=== PATIENT | male | born 1980 | race Caucasian/White ===

== ENCOUNTER 2018-01-17 09:12 | Observation (INO) | payer OTHER ==
[2018-01-17] MEDS ORDERED: NS 1,000 ML IV ONE (09:28)
--- NOTE | 2018-01-17 09:30 | EDPHY ---
H & P Stated Complaint: R lower quad pain x 1 day Time Seen by Provider: 01/17/18 09:20 HPI/ROS: CHIEF COMPLAINT: Abdominal pain HISTORY OF PRESENT ILLNESS: The patient presents the ED with a 1 day history of right lower quadrant pain. The patient denies associated fever, nausea or anorexia. The patient denies prior history of abdominal surgery. The patient did start physical therapy yesterday for a thoracic spine injury. He was lifting weights but is does not feel as if he particularly stressed his abdominal wall. The patient denies any associated hematuria or dysuria. The patient denies fever, cough or congestion. The patient denies additional acute complaints. REVIEW OF SYSTEMS: A comprehensive 10 point review of systems is otherwise negative aside from elements mentioned in the history of present illness. Source: Patient Exam Limitations: No limitations - Medical/Surgical History Hx Asthma: No Hx Chronic Respiratory Disease: No Hx Diabetes: No Hx Cardiac Disease: No Hx Renal Disease: No Hx Cirrhosis: No Hx Alcoholism: No Hx HIV/AIDS: No Hx Splenectomy or Spleen Trauma: No Other PMH: Kidney infarction 2011. thoracic disc impingment - Social History Smoking Status: Never smoked - Physical Exam Exam: General Appearance: Alert, no distress Eyes: Pupils equal and round no pallor or injection ENT, Mouth: Mucous membranes moist Respiratory: There are no retractions, lungs are clear to auscultation Cardiovascular: Regular rate and rhythm Gastrointestinal: Tenderness to palpation right lower quadrant with rebound, no peritoneal signs Neurological: 5/5 strength all 4 extremities Skin: Warm and dry, no rashes Musculoskeletal: Neck is supple nontender Extremities: symmetrical, full range of motion Constitutional: Initial Vital Signs Temperature (C) 36.4 C 01/17/18 09:16 Heart Rate 67 01/17/18 09:16 Respiratory Rate 16 01/17/18 09:16 Blood Pressure 106/84 H 01/17/18 09:16 O2 Sat (%) 97 01/17/18 09:16 O2 Delivery Mode Room Air Allergies/Adverse Reactions: No Known Allergies Allergy (Unverified 01/17/18 09:16) Home Medications: Medication Instructions Recorded NK [No Known Home Meds] 01/17/18 Medical Decision Making - Diagnostics Imaging Results: Imaging Impressions Abdomen Ultrasound 01/17/18 09:28 Impression: Sonographic findings are suspicious for acute appendicitis. Findings conveyed to Dr. Bowden on 01/17/2018 at 10:40 AM. ED Course/Re-evaluation: The patient presents to the ED for evaluation of acute right lower quadrant pain. The patient denies significant past medical history. The patient was noted to have no significant leukocytosis. He was taken for an abdominal ultrasound which demonstrates acute appendicitis. I re-evaluated the patient at 10:45 a.m.. He received a dose of IV Unasyn. Consultation is made with the surgery service. The patient will be admitted for appendectomy. I consulted Dr. Smiley at 10:45 a.m. Differential Diagnosis: Differential diagnosis considered includes appendicitis, mesenteric adenitis, ureterolithiasis, gastroenteritis - Data Points Laboratory Results: Laboratory Results 01/17/18 09:35 01/17/18 09:35 01/17/18 01/17/18 01/17/18 10:15 09:35 09:35 WBC 8.85 10^3/uL 10^3/uL (3.80-9.50) RBC 4.90 10^6/uL 10^6/uL (4.40-6.38) Hgb 15.1 g/dL g/dL (13.7-17.5) Hct 44.8 % % (40.0-51.0) MCV 91.4 fL fL (81.5-99.8) MCH 30.8 pg pg (27.9-34.1) MCHC 33.7 g/dL g/dL (32.4-36.7) RDW 11.5 % % (11.5-15.2) Plt Count 246 10^3/uL 10^3/uL (150-400) MPV 10.1 fL fL (8.7-11.7) Neut % (Auto) 71.7 % % (39.3-74.2) Lymph % (Auto) 17.4 % % (15.0-45.0) Mason % (Auto) 8.1 % % (4.5-13.0) Eos % (Auto) 2.0 % % (0.6-7.6) Baso % (Auto) 0.7 % % (0.3-1.7) Nucleat RBC Rel Count 0.0 % % (0.0-0.2) Absolute Neuts (auto) 6.34 10^3/uL 10^3/uL (1.70-6.50) Absolute Lymphs (auto) 1.54 10^3/uL 10^3/uL (1.00-3.00) Absolute Monos (auto) 0.72 10^3/uL 10^3/uL (0.30-0.80) Absolute Eos (auto) 0.18 10^3/uL 10^3/uL (0.03-0.40) Absolute Basos (auto) 0.06 10^3/uL 10^3/uL (0.02-0.10) Absolute Nucleated RBC 0.00 10^3/uL 10^3/uL (0-0.01) Immature Gran % 0.1 % % (0.0-1.1) Immature Gran # 0.01 10^3/uL 10^3/uL (0.00-0.10) Sodium 141 mEq/L mEq/L (135-145) Potassium 4.2 mEq/L mEq/L (3.3-5.0) Chloride 105 mEq/L mEq/L (97-110) Carbon Dioxide 28 mEq/l mEq/l (22-31) Anion Gap 8 mEq/L mEq/L (8-16) BUN 11 mg/dL mg/dL (7-23) Creatinine 0.8 mg/dL mg/dL (0.7-1.3) Estimated GFR > 60 Glucose 89 mg/dL mg/dL (70-100) Calcium 9.5 mg/dL mg/dL (8.5-10.4) Urine Color YELLOW Urine Appearance CLEAR Urine pH 7.0 (5.0-7.5) Ur Specific [place] 1.008 (1.002-1.030) Urine Protein NEGATIVE (NEGATIVE) Urine Ketones NEGATIVE (NEGATIVE) Urine Blood NEGATIVE (NEGATIVE) Urine Nitrate NEGATIVE (NEGATIVE) Urine Bilirubin NEGATIVE (NEGATIVE) Urine Urobilinogen NEGATIVE EU EU (0.2-1.0) Ur Leukocyte Esterase NEGATIVE (NEGATIVE) Urine Glucose NEGATIVE (NEGATIVE) Medications Given: Discontinued Medications Sodium Chloride (Ns) 1,000 mls @ 0 mls/hr IV EDNOW ONE; Wide Open PRN Reason: Protocol Stop: 01/17/18 09:29 Last Admin: 01/17/18 09:35 Dose: 1,000 mls Departure - Departure Disposition: [facility] Acute Clinical Impression: Acute appendicitis Qualifiers: Acute appendicitis type: unspecified acute appendicitis type Qualified Code(s) : K35.80 - Unspecified acute appendicitis Condition: Good Referrals: NONE *PRIMARY CARE P,. [Primary Care Provider] - As per Instructions
[2018-01-17 09:48] LABS: PLATELET COUNT 246 10^3/uL (150-400)
[2018-01-17] MEDS ORDERED: AMPICILLIN/SULBACTAM 3 GM in NS 100 ML IV ONE (10:40)
[2018-01-17] MEDS ORDERED: NS 1,000 ML IV SCH (11:30)
[2018-01-17] MEDS ORDERED: ONDANSETRON 4 MG/2 ML VIAL IVP PRN ×2 (11:37→16:22)
[2018-01-17] MEDS ORDERED: HYDROmorphONE/DILAUDID 1 MG/ML INJ IVP PRN ×2 (11:37→16:22)
--- NOTE | 2018-01-17 12:08 | GHP ---
[f rep st] PREOP HISTORY AND PHYSICAL DATE OF ADMISSION: 01/17/2018 ADMITTING DIAGNOSIS: Acute appendicitis. HISTORY: The patient is a 37-year-old white male who had lunch yesterday of a salad and yogurt at noon. He stated he had minimal discomfort starting at 5-6 p.m., but that he really noticed it when he went to bed approximately 9 p.m. At that point, it had localized to the right lower quadrant. He had no nausea and vomiting. He did not sleep well due to the pain which was sharp, intermittent. He had 2 spoonfuls of cereal this morning and decided that it was not going to go down. He stopped. He is hungry at this point. He has not had a URI in the last 2 weeks. He has not had diarrhea in the last 2 weeks. He has not had any antibiotics in the last 6 months. He did travel to [place] in October. He did not have "[place]." There is no history of inflammatory bowel disease. No history of a prior similar symptomatology. He has not had any abdominal surgery. PAST MEDICAL HISTORY: He is a nonsmoker. He drinks 1-2 drinks a day. ALLERGIES: He has no known drug allergies. MEDICATIONS: He is not taking any medications. He was using ibuprofen until 4 days ago at a rate of 800 mg 3 times a day for his neck. PAST SURGICAL HISTORY: He has had wisdom tooth extraction, but no other surgery. There is no history of rheumatic fever, tuberculosis, hepatitis, or transfusions. REVIEW OF SYSTEMS: He had a kidney infarction on the right, which was a small wedge. Extensive vascular workup was negative. He has had a C6-7 disk bulge for 1 month. Initially had a steroid taper 3 weeks ago. He tried Motrin as mentioned above and currently is using physical therapy. He was found in his workup for his kidney infarction to have PVCs, but not abnormally frequently. No limits on his activities. PHYSICAL EXAMINATION: GENERAL: He is awake and alert. VITAL SIGNS: His blood pressure is 106/84, pulse of 67. Temperature 36.4, respirations 16. HEENT: Skull is normocephalic and atraumatic. GENERAL APPEARANCE: He is awake , alert, and oriented. NECK: Thyroid is unremarkable. There are no carotid bruits. There is no cervical, supraclavicular, axillary, or inguinal lymphadenopathy. BACK: Unremarkable. LUNGS: Clear to auscultation. CARDIAC : Shows S1, S2 to be normal, normal split of S2. ABDOMEN: Shows essentially no bowel sounds. Psoas and obturator signs are negative. He is tender with cough low in the right lower quadrant at a level of 5. To palpation, left upper quadrant is 1, left mid abdomen is 1, left lower quadrant is 1, epigastrium is 1, periumbilical area is 1, suprapubic area is 3, right upper quadrant is 1, right mid abdomen is 3. Right lower quadrant is 8. LABORATORY/IMAGING DATA: His white count is 8.8 with 72 neutrophils. His hematocrit is 45. His urinalysis is unremarkable. Specific gravity is 1.008, and his platelet count is 246. His ultrasound is consistent with an acute appendicitis. PLAN: He has received Unasyn for antibiotics. Plan to take him to the operating room after the current operating room. That will happen approximately 1:30 this afternoon. /[id number]/MODL MTDD
[2018-01-17] MEDS: LR 1,000 ML IV SCH ×2 (12:25→23:44)
[2018-01-17] MEDS: KETOROLAC 30 MG/1 ML SDV IVP SCH ×3 (12:26→23:43)
--- NOTE | 2018-01-17 13:02 | ASMTCMCOM ---
CM Note CM Note Notes: CM reviewed chart for D/C planning. Pt has been hospitalized due to acute appendicitis. He is scheduled to be taken to surgery at 1:00PM. Pt lived independently prior to hospitalization and it is anticipated that he will be D/C'ed independently. CM met with Pt due to him having questions about his insurance coverage. CM will request someone at the hospital familiar with this see Pt tomorrow morning orior to his possible D/C. CM to follow. D/C Plan: Anticipate independent. Date Signed: 01/17/2018 01:01 PM Electronically Signed By:Lynn Lobo
[2018-01-17] MEDS ORDERED: HEPARIN 5,000 UNIT/0.5 ML INJ ONE (13:56)
[2018-01-17] MEDS ORDERED: ceFAZolin 1 GM/5 ML SYR ONE (13:57)
[2018-01-17] MEDS ORDERED: MIDAZOLAM 2 MG/2 ML VIAL IVP ONE (14:28)
--- NOTE | 2018-01-17 14:28 | PDANEPAE ---
ANE History of Present Illness 37 yo for ang WICHO Past Medical History - Cardiovascular History Hx Hypertension: No Hx Arrhythmias: No Hx Chest Pain: No Hx Coronary Artery / Peripheral Vascular Disease: No Hx CHF / Valvular Disease: No Hx Palpitations: No - Pulmonary History Hx COPD: No Hx Asthma/Reactive Airway Disease: No Hx Recent Upper Respiratory Infection: No Hx Oxygen in Use at Home: No Hx Sleep Apnea: No Sleep Apnea Screening Result - Last Documented: Negative - Endocrine History Hx Diabetes: No - Chronic Pain History Chronic Pain: No ANE Review of Systems Review of Systems: - Exercise capacity METS (RN): 5 METS ANE Patient History - Allergies Allergies/Adverse Reactions: No Known Allergies Allergy (Verified 01/17/18 11:03) - Home Medications Home medications: home medication list seen and reviewed Home Medications: Ibuprofen [Motrin (*)] 200 mg PO DAILY PRN 01/17/18 [Last Taken 3 Days Ago ~02/24] - NPO status NPO Since - Liquids (Date): 01/17/18 NPO Since - Liquids (Time): 00:00 NPO Since - Solids (Date): 01/17/18 NPO Since - Solids (Time): 00:00 - Anes Hx Anes Hx: no prior problems - Smoking Hx Smoking Status: Never smoked ANE Labs/Vital Signs - Labs Result Diagrams: 01/17/18 09:35 01/17/18 09:35 - Vital Signs Blood Pressure: 150/91 Heart Rate: 62 Respiratory Rate: 16 O2 Sat (%): 97 Height: 6 ft 3 in Weight: 86.183 kg ANE Physical Exam - Airway Neck exam: FROM Mallampati Score: Class 2 Mouth exam: normal dental/mouth exam - Pulmonary Pulmonary: no respiratory distress - Cardiovascular Cardiovascular: regular rate and rhythym - ASA Status ASA Status: I ANE Anesthesia Plan Anesthesia Plan: general endotracheal anesthesia
[2018-01-17] MEDS ORDERED: DEXAMETHASONE 4 MG/ML VIAL ONE (14:37)
[2018-01-17] MEDS ORDERED: ROCURONIUM 50 MG/5 ML VIAL ONE ×2 (14:37→15:17)
[2018-01-17] MEDS ORDERED: ONDANSETRON 4 MG/2 ML VIAL ONE (14:37)
[2018-01-17] MEDS ORDERED: fentaNYL 100 MCG/2 ML INJ ONE ×4 (14:38→16:30)
[2018-01-17] MEDS ORDERED: PROPOFOL/EMULSION 500 MG/50 ML BOTTLE IV ONE (14:38)
[2018-01-17] MEDS ORDERED: PROPOFOL 200 MG/20 ML VIAL ONE (15:54)
--- NOTE | 2018-01-17 16:18 | POSTOPPROG ---
Post Op Note Date of Operation: 01/17/18 Surgeon: Surendra Smiley Anesthesia: GET(General Endotracheal) Pre-op Diagnosis: acute appendicitis Post-op Diagnosis: acute and chronic appendicitis with mesenteric adenitis Indication: acute appendicitis Procedure: Laparoscopic appendectomy Findings: acute and chronic appendicitis with mesenteric adenitis Inf/Abcess present in the surg proc area at time of surgery?: No EBL: Minimal Total fluids administered: 750cc Complications: oozing due to heavy NSAID use. Specimen(s): appendix
[2018-01-17] MEDS ORDERED: PROMETHAZINE HCL 25 MG/ML INJ IVP PRN (16:22)
[2018-01-17] MEDS ORDERED: NALOXONE HCL 0.4 MG/ML INJ IVP PRN (16:22)
--- NOTE | 2018-01-17 16:24 | POSTANESTH ---
Post Anesthetic Evaluation Cardiovascular Status: Normal, Stable Respiratory Status: Tx Decrease in SpO2 Level of Consciousness/Mental Status: Can Participate in Eval Pain Control: Adequate, Prn Tx Ordered Nausea/Vomiting Control: Adequate, Prn Tx Ordered
[2018-01-17] MEDS: fentaNYL 100 MCG/2 ML INJ IVP PRN ×2 (16:32→16:49)
--- NOTE | 2018-01-17 17:11 | GOP ---
[f rep st] OPERATIVE REPORT DATE OF OPERATION: 01/17/2018 SURGEON: Surendra Smiley MD ANESTHESIA: General endotracheal. PREOPERATIVE DIAGNOSIS: Acute appendicitis. POSTOPERATIVE DIAGNOSIS: Acute and chronic appendicitis with mesenteric adenitis. PROCEDURE PERFORMED: Laparoscopic appendectomy FINDINGS: Acute and chronic appendicitis and mesenteric adenitis. SPECIMENS: Appendix. ESTIMATED BLOOD LOSS: Minimal. INDICATIONS: Acute appendicitis. DESCRIPTION OF PROCEDURE: The patient was placed on the operating room table in supine position. He previously had emptied his bladder. He was placed under general endotracheal anesthesia. His abdomen was carefully clipped, prepped, and draped. A surgical time-out was carried out and agreed to by all members of the operative team. A curvilinear incision was made at the umbilicus. This was deepened to expose the anterior rectus sheath bilaterally. This was elevated between 2 Allis clamps and divided in the midline. Pursestring of #0 PDS was placed. Note there was some oozing at this point. The peritoneum was entered. The 11-12 mm disposable Chaparrita trocar was positioned. A 5 mm left lower quadrant oblique incision was made and a 5 mm transverse suprapubic incision was made. In each case, a 5 mm port was placed. There was no free fluid seen in the pelvis. The omentum was draped over the appendix. The appendix was carefully exposed and elevated. There were chronic adhesions between the tip of the appendix and the terminal ileum. The appendix was carefully elevated and the dense extensive adhesions were divided with the Harmonic scalpel. The mesoappendix was divided down to its base on the cecum with the Harmonic scalpel. The appendix was transected with a cuff of cecum using Endo-TRISTEN 35 mm stapler. Specimen was removed in an EndoCatch bag. Because of the size of the appendix, the bag had to be opened at the skin level and the appendix delivered using ring forceps through the opened endocatch bag.. Gloves were changed. There had been some persistent oozing at the umbilical site. This was carefully re-examined and cautery was used. Pneumoperitoneum was re-established. Intraabdominal cavity was well irrigated with heparin and Ancef containing irrigant. The staple suture line was intact. The small bowel was carefully run for a distance of 3 feet. There was no evidence of Meckel diverticulum, but there was evidence of mesenteric adenitis. Ports were removed under direct vision. Inverted simple suture of #0 PDS was placed in the midpoint of the infraumbilical midline fascial incision. This was tied. The pursestring was tied. This provided excellent hemostasis. The subcutaneous tissue was well irrigated. The skin was closed with inverted simple sutures of 4-0 Vicryl at all 3 sites. Mastisol and Steri-Strips were placed. Band-Aids were positioned. The patient was transferred to recovery in stable and satisfactory condition. FLUIDS ADMINISTERED: 150 cc. COMPLICATIONS: This patient had more oozing than usual due to his heavy nonsteroidal anti-inflammatory use (800 mg Motrin q.8 hours). /[id number]/MODL MTDD
[2018-01-17] MEDS: ACETAMINOPHEN 500 MG TAB PO SCH ×2 (18:33→21:29)
[2018-01-18] MEDS: KETOROLAC 30 MG/1 ML SDV IVP SCH ×2 (05:09→11:30)
[2018-01-18] MEDS: ACETAMINOPHEN 500 MG TAB PO SCH (05:10)
[2018-01-18 07:18] VITALS: BP 110/76
--- NOTE | 2018-01-18 13:32 | SOAPPROG ---
SOAP Progress Note Assessment/Plan: POD#1 01/18/2018 Assessment: Doing well. VSS, Afebrile, eating Plan discharge Subjective: no complaints Objective: Vital Signs Temp Pulse Resp BP Pulse Ox 36.5 C 78 16 110/76 98 01/18/18 07:17 01/18/18 07:17 01/18/18 07:17 01/18/18 07:17 01/18/18 07:17 01/17/18 01/18/18 01/19/18 05:59 05:59 05:59 Intake Total 3816 Output Total 700 Balance 3116 - Time Spent With Patient Time Spent With Patient: 15 Physical Exam - Physical Exam General Appearance: WD/WN, alert, no apparent distress Neck: non-tender, full range of motion, normal inspection Respiratory: chest non-tender, lungs clear, normal breath sounds Cardiac/Chest: regular rate, rhythm Abdomen: normal bowel sounds, non-tender, soft, other (incisions well approximated, steri strips in place) Male Genitalia: deferred Rectal: deferred Back: Normal inspection Skin: normal color, warm/dry Neuro/Psych: no motor/sensory deficits, alert, normal mood/affect, oriented x 3 ICD10 Worksheet Patient Problems: Problems Problem Status Onset Acute appendicitis Acute
--- NOTE | 2018-01-18 14:18 | GDS ---
[f rep st] DISCHARGE SUMMARY DISCHARGE DIAGNOSIS: Acute and chronic appendicitis with mesenteric adenitis. PROCEDURE PERFORMED: Laparoscopic appendectomy. CONDITION ON DISCHARGE: Improved/good. DISPOSITION: Home. DIETARY RESTRICTIONS: None, though I suggest he avoid constipating foods, such as bananas, rice, applesauce, and cheese. Dietary texture restrictions, none. DISCHARGE MEDICATIONS: He is to take Tylenol 1000 mg every 8 hours scheduled. He is to take Toradol 10 mg every 6 hours for 5 days, and when that is complete , take Motrin 200 mg every 6 hours. He may supplement his pain regimen with Dilaudid 2-4 mg every 4 hours as needed for breakthrough pain. He is to discontinue his home ibuprofen dose. DISCHARGE INSTRUCTIONS: Restrictions: For the next 3 weeks, he is to shower only, lift less than 10 pounds and to keep the Steri-Strips in place. He will take a multivitamin with 100% of the HAM CURER of zinc, copper and C for that time frame. He is to watch for signs of infections for the next 2 weeks. Superficial: Redness, warmth, swelling and tenderness. Deep space : Fevers, chills, malaise, loss of appetite, abdominal pain. He is to follow up upon return to [place] with his local surgeon. In the short term, he will call me if there are issues, and I will refer him to Dr. David Murray' office. I have asked him to call me next week to receive his path report. /[id number]/MODL MTDD
== END 2018-01-18 13:59 | disposition home or self-care (01) ==
LOC: INTOOBSV 10:52 → F1N 11:49
PROVIDERS: ADMIT Surgery; ATTEND Surgery
PROC: 0DTJ4ZZ Resection of Appendix, Percutaneous Endoscopic Approach (ICD-10-PCS; principal; 2018-01-17 13:00)
DX: K35.80 Unspecified acute appendicitis (principal); K36 Other appendicitis; I88.0 Nonspecific mesenteric lymphadenitis; E86.9 Volume depletion, unspecified
CPT/HCPCS: 44970; 76705; 96361; 96374; 99285; G0378; J0295; J1100; J1644; J1885; J2250; J2405; J2704; J3010